=== PATIENT | male | born 1955 | race Caucasian/White ===

== ENCOUNTER 2019-05-24 12:06 | Emergency (ER) | payer MEDICARE ==
--- NOTE | 2019-05-24 13:14 | EDM.PDOC ---
ED [facility] GENERAL MEDICAL PROBLEM - General Chief Complaint: Upper Extremity Injury/Pain Stated Complaint: left upper extremity injury Time Seen by Provider: 05/24/19 12:55 Source of Information: Reports: Patient History Limitations: Reports: No Limitations - History of Present Illness INITIAL COMMENTS - FREE TEXT/NARRATIVE: Patient comes into the emergency department with complaint of a left shoulder injury. Patient states that he was walking on ice when he slipped and fell landing on his left shoulder approximate one-hour prior to arrival to the emergency department. Patient states that he is unable to move his arm due to the severe amount of pain at the shoulder joint. He denies any numbness or tingling in the finger. He is able to move all fingers without any discomfort. He denies any chest pain, shortness of breath, dizziness, loss consciousness, or hitting his head. He is able to walk without any difficulty. She denies any other concerns or complaints Onset: Sudden Duration: Constant Quality: Reports: Throbbing Severity: Moderate Improves with: Reports: Immobilization Worsens with: Reports: Movement Context: Reports: Other Associated Symptoms: Reports: No Other Symptoms Left Shoulder Pain Score (Numeric/FACES): 2 - Related Data Allergies Allergy/AdvReac Type Severity Reaction Status Date / Time No Known Allergies Allergy Verified 05/24/19 13:32 ED ROS GENERAL - Review of Systems Review Of Systems: Comprehensive ROS is negative, except as noted in HPI. Constitutional: Reports: No Symptoms HEENT: Reports: No Symptoms Respiratory: Reports: No Symptoms Cardiovascular: Reports: No Symptoms Endocrine: Reports: No Symptoms GI/Abdominal: Reports: No Symptoms : Reports: No Symptoms Skin: Reports: No Symptoms Neurological: Reports: No Symptoms Psychiatric: Reports: No Symptoms Hematologic/Lymphatic: Reports: No Symptoms Immunologic: Reports: No Symptoms ED EXAM, GENERAL - Physical Exam Exam: See Below Exam Limited By: No Limitations General Appearance: Alert, WD/WN, No Apparent Distress Eye Exam: Bilateral Eye: EOMI, PERRL Head: Atraumatic, Normocephalic Neck: Normal Inspection, Supple, Non-Tender Respiratory/Chest: No Respiratory Distress, Lungs Clear, Normal Breath Sounds, No Accessory Muscle Use, Chest Non-Tender Cardiovascular: Normal Peripheral Pulses, Regular Rate, Rhythm, No Murmur Peripheral Pulses: 4+: Carotid (L), Carotid (R), Radial (L), Radial (R) Back Exam: Normal Inspection, Full Range of Motion Extremities: No Pedal Edema, Normal Capillary Refill, Limited Range of Motion ( left shoulder- severe pain noted with rotation, extension, abduction, or adduction ) Neurological: Alert, Oriented, Normal Gait Course - Vital Signs Last Recorded V/S: Last Vital Signs Temp 36.6 C 05/24/19 12:06 Pulse 55 L 05/24/19 12:06 Resp 18 05/24/19 12:06 BP 145/76 H 05/24/19 12:06 Pulse Ox 95 05/24/19 12:06 Departure - Departure Time of Disposition: 14:05 Disposition: Home, Self-Care 01 Condition: Good Clinical Impression: Rotator cuff injury Qualifiers: Encounter type: initial encounter Laterality: left Qualified Code(s): S46.002A - Unspecified injury of muscle(s) and tendon(s) of the rotator cuff of left shoulder, initial encounter - Discharge Information *PRESCRIPTION DRUG MONITORING PROGRAM REVIEWED*: Not Applicable *COPY OF PRESCRIPTION DRUG MONITORING REPORT IN PATIENT EZRA: Not Applicable Instructions: Pain Medicine Instructions, [id number], Rotator Cuff Tear, How to Use a Shoulder Immobilizer Referrals: Curtis Valdes MD [Primary Care Provider] - Forms: ED Department Discharge, ED Return to Work/School Form Additional Instructions: 1. rest 2. Wear the shoulder immobilizer until cleared by orthopedics 3. Follow up with orthopedic clinic next week. It is advised that you contact the [facility] 4. Can take ibuprofen or Tylenol as needed for pain and discomfort 5. Can use ice over the affected area 3-4 times a day 20 minute intervals to help with swelling and tenderness 6. Activity and diet as tolerated 7. Call with any questions or concerns Sepsis Event Note - Focused Exam Vital Signs: Vital Signs Temp Pulse Resp BP Pulse Ox 05/24/19 12:06 36.6 C 55 L 18 145/76 H 95 Date Exam was Performed: 05/24/19 Time Exam was Performed: 14:03 - Assessment/Plan Assessment:: 1. left shoulder pain Plan: 1. Xray completed of left shoulder 2. shoulder immobilizer applied 3. He is educated to keep his shoulder immobilizer on at all times until orthopedic has evaluated and cleared due to the potential rotator cuff tear 4. Did offer pain medications however patient denied currently. Patient is instructed to contact our facility for return to emergency Department if pain increases patient was advised to take [id number] ibuprofen or Tylenol as needed and for pain and discomfort 5. Patient is advised to see orthopedic specialty within the next week 6. Activity and diet as tolerated 7. 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 8. All questions and concerns were addressed prior to patient's discharge
--- NOTE | 2019-05-24 13:43 | CR ---
[id number] RAD/RAD Shoulder Left 2V Min EXAM: LEFT SHOULDER 3 VIEWS INDICATION: FALL ON ICE. COMPARISON: None. 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 No acute fracture or dislocation is identified. IMPRESSION: 1. Mild to moderate osteoarthritis. Jv Chicas MD 05/24/19 [id number] Thank you for allowing us to participate in the care of your patient.
== END 2019-05-24 14:20 | disposition home or self-care (01) ==
LOC: VM.ED 12:06
DX: S46.002A Unspecified injury of muscle(s) and tendon(s) of the rotator cuff of left shoulder, initial encounter (principal); W00.0XXA Fall on same level due to ice and snow, initial encounter; Y93.01 Activity, walking, marching and hiking
CPT/HCPCS: 73030-LT; 99283-25; 99283-GF

== ENCOUNTER 2022-01-06 06:54 | Day surgery (SDC) | payer MEDICARE, OTHER ==
[2022-01-06] MEDS ORDERED: Sodium Chloride 0.9% 10 ML Syringe FLUSH PRN (07:00)
[2022-01-06] MEDS ORDERED: Lactated Ringers 1,000 ML IV SCH (07:00)
[2022-01-06] MEDS ORDERED: Propofol 200 MG/20 ML SDV ONE (08:12)
[2022-01-06] MEDS ORDERED: fentaNYL 100 MCG/2 ML SDV ONE (08:12)
== END 2022-01-06 10:39 | disposition home or self-care (01) ==
LOC: VM.SDS 06:54
PROVIDERS: ATTEND Family Medicine
DX: Z12.11 Encounter for screening for malignant neoplasm of colon (principal); K64.9 Unspecified hemorrhoids; F41.8 Other specified anxiety disorders; G89.29 Other chronic pain; M25.561 Pain in right knee; Z79.899 Other long term (current) drug therapy; Z98.890 Other specified postprocedural states; Z87.891 Personal history of nicotine dependence
CPT/HCPCS: 00812; J2704; J3010; J7120

== ENCOUNTER 2022-01-07 09:14 | Day surgery (SDC) | payer MEDICARE, OTHER ==
[~2022-01-07 09:14] MED LIST: Lactated Ringers 1,000 ML IV SCH; Propofol 200 MG/20 ML SDV ONE; Sodium Chloride 0.9% 10 ML Syringe FLUSH PRN; fentaNYL 100 MCG/2 ML SDV ONE
== END 2022-01-07 12:50 | disposition home or self-care (01) ==
LOC: VM.SDS 09:14
PROVIDERS: ATTEND Student in an Organized Health Care Education/Training Program
DX: Z12.11 Encounter for screening for malignant neoplasm of colon (principal); D12.0 Benign neoplasm of cecum; F41.8 Other specified anxiety disorders; M25.561 Pain in right knee; G89.29 Other chronic pain; Z79.899 Other long term (current) drug therapy; Z98.890 Other specified postprocedural states
CPT/HCPCS: 00812; 45380; J2704; J3010; J7120; 88305

== ENCOUNTER 2023-05-12 07:53 | Day surgery (SDC) | payer MEDICARE, OTHER ==
[~2023-05-12 07:53] MED LIST changes: -Propofol 200 MG/20 ML SDV ONE; -Sodium Chloride 0.9% 10 ML Syringe FLUSH PRN; -fentaNYL 100 MCG/2 ML SDV ONE
[2023-05-12] MEDS ORDERED: fentaNYL 100 MCG/2 ML SDV ONE (09:24)
[2023-05-12] MEDS ORDERED: Propofol 200 MG/20 ML SDV ONE (09:24)
[2023-05-12] MEDS ORDERED: Midazolam 1 MG/ML 2 ML SDV ONE (09:24)
== END 2023-05-12 10:48 | disposition home or self-care (01) ==
LOC: VM.SDS 07:53
PROVIDERS: ATTEND Student in an Organized Health Care Education/Training Program
DX: Z12.11 Encounter for screening for malignant neoplasm of colon (principal); F43.23 Adjustment disorder with mixed anxiety and depressed mood; G25.0 Essential tremor; Z79.899 Other long term (current) drug therapy
CPT/HCPCS: 00811; J2250; J2704; J3010; J7120

== ENCOUNTER 2023-08-25 08:21 | Day surgery (SDC) | payer MEDICARE, OTHER ==
[2023-08-25] MEDS: Lactated Ringers 1,000 ML IV SCH (08:33)
[2023-08-25] MEDS ORDERED: fentaNYL 100 MCG/2 ML SDV ONE (09:03)
[2023-08-25] MEDS ORDERED: Propofol 200 MG/20 ML SDV ONE (09:03)
[2023-08-25] MEDS ORDERED: ePHEDrine 50 MG/ML SDV ONE (09:37)
== END 2023-08-25 10:40 | disposition home or self-care (01) ==
LOC: VM.SDS 08:21
PROVIDERS: ATTEND Student in an Organized Health Care Education/Training Program
DX: Z12.11 Encounter for screening for malignant neoplasm of colon (principal); Z86.010 Personal history of colon polyps
CPT/HCPCS: 00812; J2704; J3010; J3490; J7120

== ENCOUNTER 2024-02-15 11:32 | Day surgery (SDC) | payer MEDICARE, OTHER ==
[2024-02-15] MEDS: Lactated Ringers 1,000 ML IV SCH (11:50)
[2024-02-15] MEDS ORDERED: Propofol 200 MG/20 ML SDV ONE ×3 (12:08→13:27)
[2024-02-15] MEDS ORDERED: fentaNYL 100 MCG/2 ML SDV ONE (12:08)
== END 2024-02-15 14:44 | disposition home or self-care (01) ==
LOC: VM.SDS 11:32
PROVIDERS: ATTEND Family Medicine
DX: K57.30 Diverticulosis of large intestine without perforation or abscess without bleeding (principal); K59.09 Other constipation; F41.8 Other specified anxiety disorders
CPT/HCPCS: 00811; 88305; J2704; J3010; J7120

== ENCOUNTER 2024-08-17 08:57 | Emergency (ER) | payer MEDICARE, OTHER | END 2024-08-17 10:39 | disposition home or self-care (01) | LOC: VM.ED 08:57 | DX: M25.552 Pain in left hip (principal); Z79.899 Other long term (current) drug therapy | CPT/HCPCS: 99283 ==